=== PATIENT | female | born 1990 | race Caucasian/White ===

== ENCOUNTER 2020-03-01 10:57 | Outpatient (RCR) | payer BC, SELFPAY ==
[2020-03-01 12:26] LABS: Hematocrit 40.7 % (37.0-47.0); Hemoglobin 14.3 g/dL (12.0-15.0)
[2020-03-01 12:37] LABS: Glucose 1 Hour PP 50gm Dose 101 mg/dL
[2020-03-01 13:18] LABS: HIV 1/2 Ab P24 Ag Result Negative (Negative)
[2020-03-03] MEDS: RHO(D) IMMUNE GLOBULIN 300 MCG SYRINGE IM (15:30)
== END 2020-05-30 23:59 | disposition home or self-care (01) ==
LOC: ANHLAB 10:57
PROVIDERS: PCP Physician Assistant; Visit Provider Obstetrics & Gynecology
DX: Z11.4 Encounter for screening for human immunodeficiency virus [HIV] (principal); Z29.13 Encounter for prophylactic Rho(D) immune globulin; O36.0920 Maternal care for other rhesus isoimmunization, second trimester, not applicable or unspecified; Z3A.00 Weeks of gestation of pregnancy not specified
CPT/HCPCS: 36415; 82306; 82947; 85014; 85018; 85461; 86703; 90384; 96372; G0432; J2790

== ENCOUNTER 2020-05-23 02:56 | Inpatient (IN) | payer BC, SELFPAY ==
[2020-05-23] VITALS (21 sets, daily range): BP systolic 127–154; BP diastolic 82–107; PULSE 73–105; RESP 16–18; TEMP 36.5–36.9; O2SAT 99–100; BMI 29.8
--- NOTE | 2020-05-23 02:56 | LDADM ---
This patient, Anne Rondon, was admitted to Labor/Delivery/Recovery 107 on 05/23/20 at 02:56. Plans for labor, pain management and were discussed with patient. Patient/family oriented to hospital policies and general routines including ID bracelet, bed and alarms, visiting hours, pain management, procedures, bathroom and other care routines, personal items, smoking policy, room service/diet and guest tray routines, security routines, and visiting hours. Patient/Family are encouraged to report perceived risks to care and to ask questions if they do not understand what they are told or what they should do. See OBIX for further documentation.
[2020-05-23 03:37] LABS: Basophils Percent Auto 0.2 % (0.2-1.2); Eosinophils Absolute Auto 0.1 K/mm3 (0-0.3); Eosinophils Percent Auto 0.4 % (0-4.4); Hematocrit 44.4 % (37.0-47.0); Hemoglobin 15.7 g/dL (12.0-15.0); Immature Granulocyte Absolute 0.17 K/mm3 (0.00-0.031); Immature Granulocyte Percent A 1.4 % (0-0.5); Immature Platelet Fraction Pct 12.3 % (0.9-11.2); Lymphocytes Absolute Auto 1.79 K/mm3 (0.9-3.2); Lymphocytes Percent Auto 14.7 % (18.3-44.2); Mean Corpuscular HGB Conc 35.4 g/dl (32-36); Mean Corpuscular Hemoglobin 31.5 pg (26-34); Mean Platelet Volume 11.6 fl (7.4-10.4); Monocytes Absolute Auto 0.7 K/mm3 (0.1-0.6); Monocytes Percent Auto 5.7 % (2.6-8.5); Neutrophils Absolute Auto 9.5 K/mm3 (1.3-6.7); Neutrophils Percent Auto 77.6 % (45.5-73.1); Platelet Count Result 147 k/mm3 (150-375); Red Blood Count 4.99 M/mm3 (4.2-5.4); White Blood Count 12.2 K/mm3 (4.5-10.0)
[2020-05-23 03:47] LABS: Alanine Aminotransferase 11 U/L (4-35); Albumin Level 3.9 g/dL (3.5-5.1); Alkaline Phosphatase 174 U/L (38-126); Anion Gap 7 mmol/L (8-16); Aspartate Amino Transferase 25 U/L (14-36); Bilirubin,Total 0.5 mg/dL (0.2-1.3); Blood Urea Nitrogen 7 mg/dL (7-17); Calcium 9.2 mg/dL (8.4-10.2); Carbon Dioxide 22 mmol/L (22-30); Chloride 106 mmol/L (98-107); Estimated CRCL calculation 109 ml/min; Estimated Glomerular Filt Rate > 60; Glucose 96 mg/dL (65-105); Potassium 3.5 mmol/L (3.4-5.0); Sodium 135 mmol/L (137-145); Uric Acid 6.5 mg/dL (2.5-7.5)
[2020-05-23] MEDS: OXYTOCIN 30 UNITS/NS 500 ML 30 UNITS/500 ML BAG 999 UNITS IV CONT (04:47)
--- NOTE | 2020-05-23 04:53 | WPDOBADMIT ---
Obstetrics - Admit Note Admission Note: record reviewed. No pertinent additions to the history and/or any subsequent changes in the physical findings that are not consistent with the expected course of the were found. Additions to the history and/or subsequent changes in the physical findings follow. Here in labor. 6 cm on admit and 9.5 cm on my arrival. AROM with clear fluid.
--- NOTE | 2020-05-23 04:53 | PM.OBPRVD ---
OB - Delivery Note Procedure Delivery date: 05/23/20 Procedure: Intrapartal events: None Induction method: none Delivery monitor: external FHT and external uterine Route of delivery: Laceration Description: None Specimen: No Quantitative Blood Loss (ml): 53 Anesthesia type: None Disposition: floor [place] Baby Date of : 05/23/20 Weeks of gestation at delivery: 30 Infant gender: Male Weight (pounds): 7 Weight (ounces): 15 presentation: vertex position: Right Occiput Anterior Placenta delivery description: Spontaneous cord vessel description: 3 Vessels score one minute: 9 score five minutes: 9
--- NOTE | 2020-05-23 04:55 | PM.OBDSVD ---
DS: Admitting Diagnosis Admitting Diagnosis Admitting Diagnosis: IUP 39 wk in labor DS: Discharge Diagnosis Discharge Diagnosis (1) 39 weeks gestation of : Code(s): Z3A.39 - 39 weeks gestation of Status: Acute (2) (normal spontaneous vaginal delivery): Code(s): O80 - Encounter for full-term uncomplicated delivery Status: Acute OB - DS: Summary OB Procedures : None OB Procedures Intrapartum: Spontaneous Vag Delivery OB Procedures: : None Peripartum Data Delivery Method: Natural Vaginal Laceration Description: None complications: none Status at Discharge Functional status at discharge: independent ambulation Overall status at discharge: patient is progressing back to baseline Time Spent with Patient Time attestation: Total time spent providing and/or coordinating discharge services: DS: Data Data Completed and Pending Labs on day of discharge: Labs from last 24 hours 05/23/20 05/23/20 05/23/20 03:29 03:29 03:29 WBC RBC Hgb Hct MCV MCH MCHC RDW Plt Count MPV Immature Gran % (Auto) Neut % (Auto) Lymph % (Auto) [place] % (Auto) Eos % (Auto) Baso % (Auto) Lymph # (Auto) [place] # (Auto) Eos # (Auto) Baso # (Auto) Abs Immat Gran (auto) Absolute Neuts (auto) Absolute Nucleated RBC Nucleated RBC % % Immature Plt Fraction Sodium 135 L Potassium 3.5 Chloride 106 Carbon Dioxide 22 Anion Gap 7 L BUN 7 Creatinine 0.60 L Estim Creat Clear Calc 109 Estimated GFR > 60 Glucose 96 Uric Acid 6.5 Calcium 9.2 Total Bilirubin 0.5 AST 25 ALT 11 Alkaline Phosphatase 174 H Total Protein 7.0 Albumin 3.9 RPR Pending Blood Type O Negative Antibody Screen Negative 05/23/20 05/23/20 03:29 03:29 WBC 12.2 H RBC 4.99 Hgb 15.7 H Hct 44.4 MCV 89.0 MCH 31.5 MCHC 35.4 RDW 13.0 Plt Count 147 L MPV 11.6 H Immature Gran % (Auto) 1.4 H Neut % (Auto) 77.6 H Lymph % (Auto) 14.7 L [place] % (Auto) 5.7 Eos % (Auto) 0.4 Baso % (Auto) 0.2 Lymph # (Auto) 1.79 [place] # (Auto) 0.7 H Eos # (Auto) 0.1 Baso # (Auto) 0.0 Abs Immat Gran (auto) 0.17 H Absolute Neuts (auto) 9.5 H Absolute Nucleated RBC 0.0 Nucleated RBC % 0.0 % Immature Plt Fraction 12.3 H Sodium Potassium Chloride Carbon Dioxide Anion Gap BUN Creatinine Estim Creat Clear Calc Estimated GFR Glucose Uric Acid Cancelled Calcium Total Bilirubin AST ALT Alkaline Phosphatase Total Protein Albumin RPR Blood Type Antibody Screen Discharge Plan Discharge Attending physician on discharge: Awa Tse Discharging Clinician: Awa Tse Anticipated Discharge Date/Time: 05/25/20 04:56 Patient Disposition: Home, Self-Care Activity: may shower and pelvic rest Diet: regular Discharge Instructions: Education: Mom and Baby Guide Given to: Mother Follow-Up: Call your delivering provider's office for an appointment to be seen in: 4 Weeks Mom and baby should come to the [facility] for the follow-up appointment. Appointment Date/Time: May 24, 2020 at 11:00 am What to expect at your follow-up visit: Blood Pressure Check Call [phone] if you are unable to keep your appointment time. BREAST CARE: * Wear a snug supportive bra. * For engorgement discomfort: Breast Feeding: * Apply warm moist washcloths * Express milk as needed to relieve engorgement * Wear loose clothing Bottle Feeding: * May apply ice packs * For sore nipples: * Identify correct latch-on * Apply warm moist washcloths before and after nursing * Air dry nipples after nursing * May apply Lansinoh cream to nipples PERINEAL CARE:
[2020-05-23] MEDS: OXYTOCIN 30 UNITS/NS 500 ML 30 UNITS/500 ML BAG 125 UNITS IV CONT (05:17)
[2020-05-23] MEDS: WITCH HAZEL 40 PADS 1 PAD TOPICAL (05:31)
[2020-05-23] MEDS: BENZOCAINE 20% AER SPR (*SP) 56 GM CAN 1 SPRAY TOPICAL (05:32)
[2020-05-23] MEDS: IBUPROFEN 600 MG TABLET PO ×3 (05:45→18:44)
[2020-05-23] MEDS: DOCUSATE SODIUM 100 MG CAPSULE PO (07:17)
[2020-05-23] MEDS: MULTIVIT/MIN/PREN/FOL AC/IRON TABLET 1 TAB PO (07:17)
--- NOTE | 2020-05-23 07:41 | OBPPTRN ---
[id number] Patient transferred to post room #285 via W/C. Support person present. Oriented to unit, room, information board, rooming in, admission packet and security measures. Patient verbalizes understanding.
[2020-05-23 10:48] LABS: Rapid Plasma Reagin Non-Reactive (NonReactive)
[2020-05-24] MEDS: IBUPROFEN 600 MG TABLET PO ×3 (04:08→17:39)
[2020-05-24 06:09] LABS: Hematocrit 39.4 % (37.0-47.0); Hemoglobin 13.6 g/dL (12.0-15.0)
--- NOTE | 2020-05-24 08:00 | PC.NURSE ---
PT introductions made and plan of care discussed per post , pain management, breast feeding, daily care activities and pending discharge to home. PT verbalized understanding of such care.
[2020-05-24 08:35] VITALS: BP 124/82; PULSE 72; RESP 18; TEMP 36.6; O2SAT 100
[2020-05-24 09:26] VITALS: PULSE 72; RESP 18; O2SAT 100
[2020-05-24] MEDS: ACETAMINOPHEN 325 MG TABLET 650 MG PO ×2 (09:26→17:38)
[2020-05-24] MEDS: MULTIVIT/MIN/PREN/FOL AC/IRON TABLET 1 TAB PO (09:28)
[2020-05-24] MEDS: DOCUSATE SODIUM 100 MG CAPSULE PO ×2 (09:28→17:40)
[2020-05-24] MEDS: RHO(D) IMMUNE GLOBULIN 300 MCG SYRINGE IM (14:11)
--- NOTE | 2020-05-24 18:30 | PM.OBPNVD ---
OB - PN: Subj Subjective Date/time seen: 05/24/20 18:30 doing well no complaints OB - PN: Obj Data Labs CBC & Chem 7: 05/24/20 04:05 05/23/20 03:29 Labs: Laboratory Results - last 24 hr 05/24/20 05/24/20 04:05 04:05 Hgb 13.6 Hct 39.4 Blood Type O Negative Antibody Screen Negative Screen Negative Baby's Blood Type O pos Baby's PILY Positive Doses of RhIg Required 1 OB - PN A/P Assessment and Plan (1) (normal spontaneous vaginal delivery): Code(s): O80 - Encounter for full-term uncomplicated delivery Status: Acute Assessment and Plan: continue with pp care. Time Spent With Patient Time: Total time spent is greater than 50% in coordination of care (as documented) at patient's floor/unit and/or counseling patient: Exam GI: Other: ff below umbilicus
[2020-05-26 11:04] VITALS: BP 136/81; PULSE 82; RESP 20; TEMP 36.7; O2SAT 100
== END 2020-05-24 18:55 | disposition home or self-care (01) | DRG 807 ==
LOC: ANHLDR 04:58 → ANHOB2 07:09
PROVIDERS: Admitting Provider Obstetrics & Gynecology Gynecology; PCP Physician Assistant; Visit Provider Obstetrics & Gynecology
DX: O99.52 Diseases of the respiratory system complicating childbirth (principal); Z37.0 Single live birth; Z3A.39 39 weeks gestation of pregnancy; J45.909 Unspecified asthma, uncomplicated
CPT/HCPCS: 36415; 80053; 84550; 85014; 85018; 85025; 85055; 85461; 86592; 86850; 86900; 86901; 90384; A9270; J2590; J2790